=== PATIENT | male | born 1990 | race African-American/Black ===

== ENCOUNTER 2018-04-22 17:21 | Emergency (ER) | payer MEDICAID ==
[~2018-04-22] VITALS: Ht 170.2 cm; Wt 81.8 kg
[~2018-04-22 17:21] MED LIST: ARIP15TA2 PO; DIVA250T4 PO; HALO10 PO
[2018-04-22 18:30] VITALS: BP 158/99
== END 2018-04-22 19:14 | disposition home or self-care (01) ==
LOC: EMS 17:23
DX: H53.8 Other visual disturbances (principal); R03.0 Elevated blood-pressure reading, without diagnosis of hypertension; F31.9 Bipolar disorder, unspecified; F20.9 Schizophrenia, unspecified; F17.210 Nicotine dependence, cigarettes, uncomplicated

== ENCOUNTER 2018-05-28 12:16 | Emergency (ER) | payer MEDICAID ==
[~2018-05-28] VITALS: Ht 172.7 cm; Wt 81.8 kg
[2018-05-28 16:18] LABS: APPEARANCE,URINE CLOUDY (CLEAR); BILIRUBIN,URINE NEGATIVE (NEGATIVE); GLUCOSE, URINE (UA) NEGATIVE (NEGATIVE); KETONES,URINE NEGATIVE (NEGATIVE); LEUKOCYTE ESTERASE ,URINE MODERATE (NEGATIVE); NITRATE,URINE NEGATIVE (NEGATIVE); OCCULT BLOOD,URINE MODERATE (NEGATIVE); PROTEIN,URINE POS 1+ (NEGATIVE)
[2018-05-28 16:32] LABS: BACTERIA,URINE Moderate /HPF (None Seen); WBC,URINE 51-100 /HPF (0-5)
[2018-05-28 16:33] LABS: SQUAMOUS EPITHELIAL CELL,UR Few /LPF (None Seen)
[2018-05-28] MEDS ORDERED: DIVA-78 PO (18:18)
[2018-05-28] MEDS ORDERED: CefTRIAXone SODIUM 1 GM/VIAL IM ONE (18:30)
[2018-05-28] MEDS ORDERED: AZITHROMYCIN 250 MG TABLET PO ONE (18:30)
[2018-05-28] MEDS ORDERED: IBUPROFEN 600 MG TABLET PO ONE (18:30)
[2018-05-28] MEDS ORDERED: LIDOCAINE/PF 1% 2 ML VIAL IM ONE (18:30)
[2018-05-28 18:48] VITALS: BP 135/73
== END 2018-05-28 18:57 | disposition home or self-care (01) ==
LOC: EMS 12:17
DX: N39.0 Urinary tract infection, site not specified (principal); N50.811 Right testicular pain; N50.812 Left testicular pain; F31.9 Bipolar disorder, unspecified; F20.9 Schizophrenia, unspecified; F17.210 Nicotine dependence, cigarettes, uncomplicated
CPT/HCPCS: 76870; 81001; 87077; 87086; 87186; 96372; 99284; J0696; J3490